=== PATIENT | female | born 1995 | race Caucasian/White ===

== ENCOUNTER 2018-07-13 13:41 | Emergency (ER) | payer OTHER ==
[~2018-07-13] VITALS: Ht 172.7 cm; Wt 82.1 kg
[2018-07-13 14:15] LABS: ABSOLUTE NEUTROPHILS 5.3 thou/uL (1.4-8.2); BASOPHILS 0.1 % (0.0-2.0); HEMATOCRIT 35.4 % (37.0-47.0); HEMOGLOBIN 12.1 gm/dL (12.0-15.0); LYMPHOCYTES 18.1 % (24.0-44.0); MCH 30.9 pg (26.0-34.0); MCHC 34.3 g/dL (28.0-37.0); MCV 90.1 fL (80.0-100.0); MONOCYTES 8.4 % (1.0-8.0); PLATELET COUNT 217 thou/uL (150-400); POLYS 70.4 % (36.0-66.0); RBC 3.93 mil/uL (4.20-5.00); RDW 12.9 % (10.5-14.5); WBC 7.5 thou/uL (4.0-11.0)
[2018-07-13 14:23] LABS: CALCIUM 8.9 mg/dL (8.5-10.1); CREATININE 0.7 mg/dL (0.6-1.0); POTASSIUM 3.4 mmol/L (3.5-5.1)
[2018-07-13] MEDS ORDERED: PRENATAL MULTI1 EAC6 PO (14:49)
[2018-07-13 17:28] VITALS: BP 116/77
--- NOTE | 2018-07-14 11:27 | EKG ---
[place] [address] [facility] [place] [address] ELECTROCARDIOGRAM REPORT Name: VALDEZ KIRKLAND Room #: DEP CY Maciel#: [id number] ������������������ Admission: 07/13/18 ������������������ Attend Phys: Discharge: 07/13/18 ������������������ Date of : [birth year] Report #: [id number] ����������������������������������������������������������������� [id number] THIS REPORT FOR: //name// 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: [place] : 1995 Requested By: Kaye Larios Order Number: [id number] MD: Chung Hauser Measurements Intervals [place] Rate: 108 P: 34 HI: 122 QRS: 46 QRSD: 68 T: -8 QT: 321 QTc: 430 Interpretive Statements Sinus tachycardia Ventricular premature complex Baseline wander Nonspecific ST-T wave changes No previous ECG available for comparison Electronically Signed On 07-14-2018 11:27:05 [employer] by Chung Hauser [email or web address] ��������������������������������������������� <ELECTRONICALLY SIGNED> ���������������������������������������� By: Chung Hauser MD ��������������������������������������������� 07/14/18 1127 [id number] 1349 Chung Hauser MD /GALINA
== END 2018-07-13 17:28 | disposition short-term general hospital (02) ==
LOC: ER 13:41
PROVIDERS: Student in an Organized Health Care Education/Training Program
DX: O99.513 Diseases of the respiratory system complicating pregnancy, third trimester (principal); Z3A.33 33 weeks gestation of pregnancy; R06.02 Shortness of breath; J45.909 Unspecified asthma, uncomplicated; Z88.2 Allergy status to sulfonamides; Z88.1 Allergy status to other antibiotic agents